=== PATIENT | male | born 1955 | race Caucasian/White ===

== ENCOUNTER 2016-05-04 08:22 | Outpatient (CLI) | payer MEDICAID ==
[~2016-05-04] VITALS: Ht 182.9 cm; Wt 100.0 kg
--- NOTE | ~2016-05-04 | HEMODYNAMI ---
PATIENT:JORGE L PRAJAPATI MEDICAL RECORD: [id number] : 59 LOCATION:D.[facility] ADMISSION DATE: 05/04/16 Generatedon:05/04/201611:34 Patient name: JORGE L PRAJAPATI Patient #: [id number] SSN: DO B: 1955 Date of study: 05/04/2016 Page: Of Hemodynamic Procedure Report Patient Data Patient Demographics Procedure consent was obtained First Name: JORGE L Gender: Male Last Name: VICTORINA : 1955 [facility] Initial: NORMA Age: 60 year(s) Patient #: [id number] Race: Additional ID: [id number] Contact details Address: [address] State: [place] City: [place] Zip code: [address] Past Medical History Allergies Allergen Reaction Date Comments Reported ANIL inhibitors 05/04/2016 Admission Admission Data Admission Date: 05/04/2016 Admission Time: 8:22 Admit Source: Other Lab Results Lab Result Date: 05/04/2016 Lab Result Time: 0:00 Biochemistry Name Units Result Min Max Creatinine mg/dl 1.3 --(---*)-- 0.6 1.3 CBC Name Units Result Min Max Hemoglobin g/dl 14.8 --(-*--)-- 13.5 17.5 Procedure Procedure Types Cath Procedure Diagnostic Procedure PPM/ICD Permanent Pacer Generator Exg. Miscellaneous Procedures Moderate Sedation up to 15 minutes Procedure Description Procedure Date Procedure Date: 05/04/2016 Procedure Start Time: 10:34 Procedure Staff Name Function John Vilchis MD Performing Physician Fede Flores RT Scrub Corby Del Rosario RT Scrub Beverley Bonner RN Nurse Unique Moy RT Monitor Mango Carmona MD Assisting physician Procedure Data Cath Procedure Fluoroscopy Diagnostic fluoroscopy Total fluoroscopy Time: 0 time: 0 min min Diagnostic fluoroscopy Total fluoroscopy dose: 0 dose: 0 mGy mGy Estimated blood loss: 5 ml Procedure Medications Medication Administration Route Dosage Ancef (1Gm/50ml NS) I.V.P.B 1 g Ancef Irrigation added to field 1 g (1gm/500ml NS) Bupivacaine 0.5% added to field 10 ml Lidocaine 1% with added to field 30 ml Epi Versed I.V. 1 mg Fentanyl I.V. 50 mcg Versed I.V. 0.5 mg Fentanyl I.V. 25 mcg Versed I.V. 0.5 mg Fentanyl I.V. 25 mcg Hemodynamics Rest HGB: 14.8 (g/dl) Heart Rate: 61 (bpm) Snapshots Pre Cath Intra NCS Post Cath Vital Signs Time Heart Resp SPO2 NIBP (mmHg) Rhythm Pain Sedation Rate (ipm) (%) Status Level (bpm) 10:53:35 72 16 99 175/98(139) NSR 0 (11) 10(A) , No pain 10:58:03 61 14 100 171/102(142) NSR 0 (11) 10(A) , No pain 11:02:34 68 16 99 172/97(149) NSR 0 (11) 10(A) , No pain 11:06:56 66 15 99 152/93(132) NSR 0 (11) 10(A) , No pain 11:11:20 60 20 99 165/94(125) NSR 0 (11) 10(A) , No pain 11:15:49 78 20 95 158/105(132) NSR 0 (11) 10(A) , No pain 11:20:15 61 19 96 149/87(119) NSR 0 (11) 10(A) , No pain 11:24:35 68 20 97 139/82(113) NSR 0 (11) 10(A) , No pain 11:28:53 70 19 97 143/86(119) NSR 0 (11) 10(A) , No pain 11:33:13 64 18 98 141/91(110) NSR 0 (11) 10(A) , No pain Medications Time Medication Route Dose Verified Delivered Reason Notes Effective ness by by 10:53:34 Ancef I.V.P.B 1 g Mango Lowery Per (1Gm/50ml Mathew Bonner RN physician NS) 10:53:54 Ancef added 1 g Mango Cobian used for Irrigation to Mathew Carmona MD procedure (1gm/500ml field NS) 10:54:17 Bupivacaine added 10 ml Mango Cobian used for 0.5% to Mathew Carmona MD procedure field VICTOR 10:54:30 Lidocaine added 30 ml Mango Cobian used for 1% with Epi to Mathew Carmona MD procedure field VICTOR 11:11:27 Versed I.V. 1 mg Mango Beverley for Mathew Bonner RN sedation 11:11:34 Fentanyl I.V. 50 Mango Beverley for mcg Mathew Bonner RN sedation 11:14:26 Versed I.V. 0.5 Mango Beverley for mg Mathew Bonner RN sedation 11:14:30 Fentanyl I.V. 25 Mango Beverley for mcg Mathew Bonner RN sedation 11:17:00 Versed I.V. 0.5 Mango Beverley for mg Mathew Bonner RN sedation 11:17:09 Fentanyl I.V. 25 Mango Beverley for mcg Mathew Bonner RN sedation Procedure Log Time Note 10:34:17 Admit Source: Other 10:34:52 Corby Del Rosario RT(R) sent for patient. Start room use. 10:34:54 Time tracking: Regular hours 10:34:57 Plan of Care:Hemodynamics will remain stable., Cardiac rhythm will remain stable., Comfort level will be maintained., Respiratory function will remain adequate., Patient/ family verbilizes understanding of procedure., Procedure tolerated without complication., Recovers from procedure without complications.. 10:45:49 Patient received from Pre/Post Procedure Room to [facility] 3 Alert and oriented. Tansferred to table in Supine position. 10:45:50 Warm blankets applied, and odette hugger turned on for patient comfort. 10:45:50 Correct patient and procedure confirmed by team. 10:45:52 Signed procedure consent form obtained from patient. 10:45:52 ECG and BP/O2 sat monitors applied to patient. 10:52:14 Vital chart was started 10:52:20 Rhythm: sinus rhythm 10:52:21 Full Disclosure recording started 10:52:34 H&P Date Dictated: 04/27/2016 Within 30 days and on chart., H&P Addendum completed by physician on day of procedure. (MUST COMPLETE FOR ALL OUTPATIENTS). 10:52:36 Pre-procedure instructions explained to patient. 10:52:36 Pre-op teaching completed and patient verbalized understanding. 10:52:37 Family in waiting room. 10:52:39 Patient NPO since Midnight. 10:52:43 Patient allergic to ANIL inhibitors 10:52:46 Is the patient allergic to Iodine/contrast media? No. 10:52:51 Is patient on blood thinner?Yes 10:52:55 Patient diabetic? No. 10:53:02 Previous problem with sedation/anesthesia? No ? 10:53:03 Snore? Yes 10:53:05 Sleep apnea? No 10:53:07 Deviated septum? No 10:53:13 Opens mouth fully? Yes 10:53:14 Sticks out tongue? Yes 10:53:16 Airway obstruction? No ? 10:53:19 Dentures? No ? 10:53:26 Patient pain scale 0/10 ?. 10:53:32 IV patent on arrival in left hand with 0.9% NaCl at O. 10:53:34 Ancef (1Gm/50ml NS) 1 g I.V.P.B was given by Beverley Bonner RN; Per physician; 10:53:54 Ancef Irrigation (1gm/500ml NS) 1 g added to field was given by Mango Carmona MD; used for procedure; 10:54:03 Lab Result : Creatinine 1.3 mg/dl 10:54:03 Lab Result : Hemoglobin 14.8 g/dl 10:54:07 Lab results completed and on chart. 10:54:12 Left chest area was prepped with chlora-prep and draped in sterile fashion 10:54:14 Alarms reviewed by R. N. 10:54:14 Sharps counted by scrub and verified by R.N. 10:54:17 Bupivacaine 0.5% 10 ml added to field was given by Mango Carmona MD; used for procedure; 10:54:18 Use device set Pacemaker Set 10:54:19 Mepilex Dressing opened to sterile field. 10:54:20 2.0 Ticron Multipack opened to sterile field. 10:54:20 3.0 Vicryl Multipack [id number] opened to sterile field. 10:54:21 5.0 Monocryl PS2 [id number] opened to sterile field. 10:54:30 Lidocaine 1% with Epi 30 ml added to field was given by Mango Carmona MD; used for procedure; 10:55:07 Medtronic Advisa MRI PPM Dual Generator opened to sterile field. 10:58:53 Baseline sample Acquired. 11:05:25 Physician paged 11:10:30 Final Timeout: patient, procedure, and site verified with staff and physician. All members of the team are in agreement. 11:10:35 Left chest site verified by team. 11:11:11 Physical assessment completed. ASA score P 2 - A patient with mild systemic disease as per Mango Carmona MD. 11:11:14 Sedation plan: IV Moderate Sedation Versed, Fentanyl 11:11:27 Versed 1 mg I.V. was given by Beverley Bonner RN; for sedation; 11:11:30 Med[employer] reimbursement representative Michael Pryor present for procedure. 11:11:34 Fentanyl 50 mcg I.V. was given by Beverley Bonner RN; for sedation; 11:11:39 Pre sharps counted by scrub and verified by RN: Sutures: 13 Sponges: 5 Stick needles: 0 Skin needles: 2 Blade: 1 Cautery: 1 11:11:41 Grounding pad site Left thigh. 11:11:42 Grounding pad site free from injury. 11:13:02 Lidocaine 1% w/epi and Bupivacaine 0.5% to left subclavicular area by Mango Carmona MD. 11:13:51 Procedure type changed to Cath procedure, Diagnostic procedure, PPM/ICD, Permanent Pacer Generator Exg., Miscellaneous Procedures, Moderate Sedation up to 15 minutes 11:14:26 Versed 0.5 mg I.V. was given by Beverley Bonner RN; for sedation; 11:14:30 Fentanyl 25 mcg I.V. was given by Beverley Bonner RN; for sedation; 11:14:41 Incision made to left subclavicular area. 11:14:44 Generator pocket made/opened. 11:17:00 Versed 0.5 mg I.V. was given by Beverley Bonner RN; for sedation; 11:17:09 Fentanyl 25 mcg I.V. was given by Beverley Bonner RN; for sedation; 11:17:47 PPM Dual was removed.. 11:17:56 Ventricular lead tested. 11:18:44 Atrial lead tested. 11:19:38 PPM Dual was attached to lead(s) and inserted into pocket. 11:21:06 Generator was sutured in place with 2-0 ticron. 11::52 Subcutaneous closure was completed with 3-0 vicryl. 11:24:21 Parameters-- Generator: Mode: AAIR<=>DDDR. Lower Rate: 60bpm. Upper Rate: 130bpm. 11::52 Parameters--Atrial P/R Wave: 5.9mV. Current: 0.9mA; Threshold: 0.3V; Impedence: 496OHMS. 11:25:08 Parameters--Ventricular P/R Wave: 8.3mV. Current: 1.5mA; Threshold: 0.7V; Impedence: 441OHMS. 11:25:14 Skin closure was completed with 5-0 monocryl. 11:25:22 Lt Chest incision was dressed with Mepilex dressing. 11:27:21 Procedure ended.(Physican Out) 11:27:23 Fluoroscopy time 00.00 minutes. 11:27:25 Flurop Dose total: 0 11:27:25 Fluoroscopy dose: 0 mGy 11:27:26 Sharps counted by scrub and verified by R.N. 11:27:39 Post sharps counted by scrub and verified by RN: Sutures: 14 Sponges: 5 Stick needles: 0 Skin needles: 2 Blade: 1 Cautery: 1 11:27:43 Insertion/operative site no bleeding no hematoma. 11:27:56 Post-procedure physical assessment completed. ASA score P 2 - A patient with mild systemic disease as per Mango Carmona MD. 11:27:58 Post procedure rhythm: unchanged. 11:28:01 Estimated blood loss: 5 ml 11:28:02 Post procedure instruction explained to patient.Patient verbalizes understanding. 11:28:02 Patient needs reinforcement of post procedure teaching. 11:28:07 See physician's report for complete and final results. 11:28:35 Procedure and supply charges have been captured, reviewed, submitted and are correct. 11:34:09 Vital chart was stopped 11:34:11 Report given to Pre/Post Procedure Room. 11:34:20 Patient transfered to Pre/Post Procedure Room with Stretcher. 11:34:24 End room use (Document Last) Device Usage Item Name Manufacture Quantity Catalog Hospital Part Current Minimal Lo t# / Number Charge Number Stock Stock Serial# Code Mepalfredx [place] 1 [id number] 5 Dressing Health 2.0 Ethicon 7 [id number] [id number] [id number] 5 Ticron Multipack 3.0 Ethicon 1 [id number] [id number] 5 Vicryl Multipack [id number] 5.0 Ethicon 1 [id number] 110686 602360 5 Monocryl PS2 Y495G Medtronic Medtronic 1 [id number] 5 Advisa MRI PPM Dual Generator Signature Audit [place] Stage Time Signature Unsigned Intra-Procedure 05/04/2016 Unique 11:34:39 AM Counts RT(R) Signatures Monitor : Unique Signature : Counts RT Date : Time : [address] [address]
[~2016-05-04 08:22] MED LIST: NORVASC5 MG PO; PLAVIX75 MG PO; PRINIVIL20 MG PO
[2016-05-04] MEDS ORDERED: DIOVAN HCT 160/1 TA1 PO (08:44)
[2016-05-04 08:46] VITALS: BP 160/92; Ht 182.9 cm; Wt 100.0 kg
[2016-05-04 09:10] LABS: HEMATOCRIT 43.6 % (42.0-54.0); HEMOGLOBIN 14.8 g/dL (13.5-17.5); MCH 35.4 pg (26.0-34.0); MCHC 33.9 g/dL (31.0-37.0); MCV 104.3 fL (80.0-100.0); RBC 4.18 10x6/uL (4.20-6.10); RDW 13.5 % (11.5-14.5); WBC 3.8 10x3/uL (4.8-10.8)
[2016-05-04 09:16] LABS: ANION GAP 12.8 mmol/L (8-16); CALCIUM 9.1 mg/dL (8.5-10.1); CARBON DIOXIDE 27.1 mmol/L (21.0-32.0); CREATININE - SERUM 1.3 mg/dL (0.6-1.3); POTASSIUM - SERUM 3.9 mmol/L (3.5-5.1)
[2016-05-04 09:58] LABS: INR 1.1 (0.85-1.17); PROTIME 14.1 SECONDS (11.6-15.0)
--- NOTE | 2016-05-04 11:57 | NUR ---
1145 RECEIVED PT TO CATH HOLDING VIA STRETCHER. PT IS ALERT, DENIES ANY C/O. DRESSING TO LEFT UPPER CHEST IS CDI. IV PATENT. FAMILY AT BEDSIDE. CALL LIGHT IN REACH, INSTRUCTED PT TO CALL FOR NEEDS. PO FLUIDS SERVED. PT STATES DOES NOT WANT LUNCH TRAY.
--- NOTE | 2016-05-04 12:34 | NUR ---
VSS WITH CHEST PAIN DENIED PATIENT SITTING WITH HOB UP 30 DEGREES. PIV REMOVED FROM LEFT ARM WITH DRESSING APPLIED. PATIENT UP TO GET DRESSED FOR DISCHARGE
--- NOTE | 2016-05-04 12:49 | NUR ---
VERBAL AND WRITTEN DISCHARGE GONE OVER WITH PATIENT AND BOTH VERBALIZED UNDERSTANDING. CHEST PAIN DENIED WITH DRESSING TO LEFT CHEST WALL CDI NO BLEEDING NO HEMATOMA NOTED LEFT VIA WC TO PARKING FOR TRANSPORT HOME
--- NOTE | 2016-05-05 08:39 | OP ---
PATIENT NAME: JORGE L PRAJAPATI MEDICAL RECORD: [id number] :59 LOCATION:D.CAT ADMISSION DATE: SURGEON: ERNESTO PINA MD DATE OF OPERATION: 05/04/2016 SURGEON: Ernesto Pina MD PREOPERATIVE DIAGNOSIS: Sick sinus syndrome, status post pacemaker. POSTOPERATIVE DIAGNOSIS: Sick sinus syndrome, status post pacemaker. PROCEDURE PERFORMED: Pacemaker generator exchange. ANESTHESIA: Total intravenous anesthesia. COMPLICATIONS: None. SPECIMENS: None. Case was clean. ESTIMATED BLOOD LOSS: Minimal. OPERATIVE COURSE: After consent was obtained, the patient was taken to the cardiac catheterization suite. He was placed in the OR table. A timeout was taken to confirm the correct patient and procedure, total intravenous anesthesia was given. The left chest was prepped and draped in typical sterile fashion. A 20 cc of local anesthetic were injected in the left chest wall. The old incision was opened with a 15-blade scalpel. Dissection continued to the level of the dermis and subcutaneous tissue with electrocautery. The capsule of the pocket was incised with electrocautery. It was then opened with Metzenbaum scissors. This was bluntly dissected. The generator was removed. The leads were removed from the generator battery. They were sent to the Medtronic device to check for placement accuracy. Once complete, the generator wires were placed into the new generator battery. The battery was secured into the capsule with 3-0 Vicryl suture and subcutaneous tissue was closed with 3-0 Vicryl suture. The skin was closed with 5-0 Monocryl. At the end of the case, all needle and instrument counts were correct. No complications occurred. The patient was transferred to the recovery room in satisfactory condition. TRANSINT:[id number] Voice Confirmation ID: [id number] DOCUMENT ID: [id number] ERNESTO PINA MD at 0839 CC: [id number] DICTATION DATE: 05/04/16 1136 INSULATION APPLICATOR: 05/04/16 1451 DEP CLI 05/04/16 [address] [place] [address]
== END 2016-05-04 12:51 | disposition home or self-care (01) ==
LOC: D.CATH 08:22
PROVIDERS: Internal Medicine Interventional Cardiology
DX: Z45.010 Encounter for checking and testing of cardiac pacemaker pulse generator [battery] (principal); I49.5 Sick sinus syndrome

== ENCOUNTER 2017-07-19 15:31 | Observation (INO) | payer BC ==
[~2017-07-19] VITALS: Ht 182.9 cm; Wt 90.9 kg
--- NOTE | ~2017-07-19 | EC ---
PATIENT:JORGE L PRAJAPATI DATE OF SERVICE: 07/19/17 SEX: M MEDICAL RECORD: [id number] DATE OF : 59 LOCATION:D.[facility] AGE OF PATIENT: 61 ADMISSION DATE: 07/19/17 REFERRING PHYSICIAN: INTERPRETING PHYSICIAN: ERNA KIRK MD ECHOCARDIOGRAM REPORT ECHO CHARGES 4 ECHO COMPLETE Date: 07/20 CLINICAL DIAGNOSIS: CVA WITH DYSPNEA HX OF PACER ECHOCARDIOGRAPHIC MEASUREMENTS (adult normal given) AC root (d.<3.7cm) 3.6 cm LV Septum d (<1.2 cm> 1.5 cm Valve Excursion 1.6 cm LV Septum (systole) 1.6 cm Left Atria (s.<4.0cm> 6.4 cm LVPW d(<1.2cm) 1.6 cm RV (d.<2.3cm) 4.3 cm LVPW (sytole) 1.7 cm LV diastole(<5.6CM) 4.8 cm MV E-F(>70mm/sec) cm LV systole 3.1 cm LVOT Diameter 1.9 cm MV exc.(>10mm) 1.9 cm Est.ejection fraction (50-75%) % DOPPLER: LVIT cm/sec A 79.0 cm/sec E 88.0 cm/sec LA cm/sec RVSP 29 mmHg LVOT 89 cm/sec AOP1/2T m/s Asc. Ao 121 cm/sec RVOT 68 cm/sec RA cm/sec PA 103 cm/sec AV Gradient Peak 5.82 mmHg AV Mean 2.825mmHg AV Area 1.9 cm MV Gradient Peak 3.88 mmHg MV Mean 1.40 mmHg MV Area cm COMMENTS: Trim Master Operator: Margot DILLARD Coater Associate: 2 Dr. Richard TAPE# PACS Pericardial Effusion N DATE OF SERVICE: 07/20/2017 FINDINGS: 1. Left ventricular chamber size is within normal limits. Left ventricular systolic function is normal. Overall ejection fraction estimated at 60%. 2. Left atrium, right atrium, and right ventricular chamber sizes are within normal limits. 3. Valvular structures have normal structure and motion. 4. Doppler interrogation reveals trace mitral regurgitation. No other valvular insufficiency or stenosis. Pulmonary systolic pressure is normal estimated at ECHOCARDIOGRAM REPORT [id number] JORGE L PRAJAPATI 29 mmHg. 5. No evidence of pericardial effusion or left ventricular thrombus. TRANSINT:[id number] Voice Confirmation ID: [id number] DOCUMENT ID: [id number] ERNA KIRK MD at 1006 CC: [id number] DICTATION DATE: 07/21/17 0958 SYSTEMS DESIGN ENGINEER: 07/21/17 1242 DIS IN 07/20/17 [id number] [place] [address]
[~2017-07-19 15:31] MED LIST changes: +DIOVAN HCT 160/1 TA1 PO
[2017-07-19 16:26] LABS: BASOPHILS 0.2 % (0-2); EOSINOPHILS 1.1 % (0-7); HEMATOCRIT 43.9 % (42.0-54.0); HEMOGLOBIN 15.2 g/dL (13.5-17.5); LYMPHOCYTES 42.5 % (15-50); MCH 36.6 pg (26.0-34.0); MCHC 34.6 g/dL (31.0-37.0); MCV 105.8 fL (80.0-100.0); MEAN PLATELET VOLUME 9.6 fL (7.4-10.4); MONOCYTES 8.7 % (2-11); NEUTROPHILS 47.5 % (40-80); RBC 4.15 10x6/uL (4.20-6.10); RDW 13.5 % (11.5-14.5); WBC 4.4 10x3/uL (4.8-10.8)
[2017-07-19 16:31] LABS: PROTIME 12.8 SECONDS (11.6-15.0)
[2017-07-19 16:32] LABS: APTT 26.9 SECONDS (22.8-39.4)
[2017-07-19 16:33] LABS: PLATELET COUNT 220 10x3/uL (130-400)
[2017-07-19 16:37] LABS: ALBUMIN 3.8 g/dL (3.4-5.0); ANION GAP 11.6 mmol/L (8-16); BILIRUBIN - TOTAL 0.5 mg/dL (0.2-1.3); CALCIUM 9.6 mg/dL (8.5-10.1); CARBON DIOXIDE 30.8 mmol/L (21.0-32.0); CREATININE - SERUM 1.2 mg/dL (0.6-1.3); POTASSIUM - SERUM 3.4 mmol/L (3.5-5.1); PROTEIN - SERUM 8.2 g/dL (6.4-8.2)
[2017-07-19 18:01] LABS: CHOL - HDL RATIO 6.5 ratio (2.3-4.9); LDL-HDL RATIO 3.7 ratio (1.5-3.5)
[2017-07-19 23:40] VITALS: BP 142/79; Ht 182.9 cm; Wt 90.9 kg
[2017-07-20 04:14] VITALS: BP 128/701
[2017-07-20 06:04] LABS: BASOPHILS 0.6 % (0-2); EOSINOPHILS 2.5 % (0-7); HEMATOCRIT 40.3 % (42.0-54.0); HEMOGLOBIN 13.7 g/dL (13.5-17.5); LYMPHOCYTES 47.5 % (15-50); MCV 105.8 fL (80.0-100.0); MEAN PLATELET VOLUME 9.7 fL (7.4-10.4); MONOCYTES 8.3 % (2-11); NEUTROPHILS 41.1 % (40-80); PLATELET COUNT 194 10x3/uL (130-400); RBC 3.81 10x6/uL (4.20-6.10); RDW 13.4 % (11.5-14.5); WBC 3.6 10x3/uL (4.8-10.8)
[2017-07-20 06:39] LABS: ALBUMIN 3.1 g/dL (3.4-5.0); BILIRUBIN - TOTAL 0.31 mg/dL (0.2-1.3); CREATININE - SERUM 1.1 mg/dL (0.6-1.3)
[2017-07-20 06:49] LABS: THYROID STIMULATING HORMONE 3.43 uIU/mL (0.36-3.74)
[2017-07-20 08:32] VITALS: BP 134/88
[2017-07-20] MEDS ORDERED: PRAVACHOL20 MG PO (10:08)
[2017-07-20] MEDS ORDERED: ASPIRIN EC81 M1 PO (10:08)
[2017-07-20 10:11] LABS: PHOSPHOROUS 4.7 mg/dL (2.5-4.9)
[2017-07-20 11:44] VITALS: BP 149/79
[2017-07-21 13:17] LABS: ANA REFLEX - ANTICHROMATIN ABS <0.2 AI (0.0-0.9); ANA REFLEX - DBL STRANDED DNA <1 IU/mL (0-9); ANA REFLEX - DIRECT Negative (Negative); ANA REFLEX - RNP ANTIBODIES 0.6 AI (0.0-0.9); ANA REFLEX - SJOGRENS AB SSA 0.4 AI (0.0-0.9); ANA REFLEX - SJOGRENS AB SSB <0.2 AI (0.0-0.9); ANA REFLEX - SMITH AB <0.2 AI (0.0-0.9)
== END 2017-07-20 15:46 | disposition home or self-care (01) ==
LOC: D.ER 15:31 → D.MS 18:13 → D.EDHOLD 18:13 → OBSVTIME 18:14 → D.MS 19:19
PROVIDERS: Family Medicine
DX: I63.9 Cerebral infarction, unspecified (principal); R47.81 Slurred speech; R29.810 Facial weakness; F17.213 Nicotine dependence, cigarettes, with withdrawal; I10 Essential (primary) hypertension; Z95.0 Presence of cardiac pacemaker

== ENCOUNTER → 2019-07-20 08:24 | Outpatient (CLI) | payer MEDICAID ==
[2017-07-19 23:40] VITALS: BMI 27.2
[~2019-07-20 08:24] MED LIST changes: +ASPIRIN EC81 M1 PO; +PRAVACHOL20 MG PO
== END | disposition home or self-care (01) ==
LOC: D.HCCARDIO 08:24 → D.HCCECHO 09:00
PROVIDERS: ATTEND Internal Medicine Cardiovascular Disease
DX: R06.09 Other forms of dyspnea (principal); Z03.89 Encounter for observation for other suspected diseases and conditions ruled out

== ENCOUNTER 2019-08-03 12:16 | Outpatient (CLI) | payer MEDICAID ==
[~2019-08-03] VITALS: Ht 182.9 cm; Wt 86.4 kg
--- NOTE | ~2019-08-03 | HEMODYNAMI ---
PATIENT:JORGE L PRAJAPATI MEDICAL RECORD: [id number] : 59 LOCATION:D.[facility]AN[facility] ADMISSION DATE: 08/03/19 Generatedon:08/03/201914:48 Patient name: JORGE L PRAJAPATI Patient #: [id number] SSN: [id number] : 1955 Date of study: 08/03/2019 Page: Of Hemodynamic Procedure Report Patient Data Patient Demographics Procedure consent was obtained First Name: JORGE L Gender: Male Last Name: VICTORINA : 1955 [facility] Initial: NORMA Age: 63 year(s) Patient #: [id number] Race: SSN: [id number] Additional ID: [id number] Contact details Address: [address] State: [place] City: [place] Zip code: [address] Past Medical History Performed procedures and imaging results Date Procedure Procedure Results Comments 07/20/2019 Stress testing Positive->Intermediate with SPECT MPI risk Allergies Allergen Reaction Date Comments Reported ANIL inhibitors 05/04/2016 Other allergy 08/03/2019 anil inhibitors Admission Admission Data Admission Date: 08/03/2019 Admission Time: 12:16 Arrival Date: 08/03/2019 Arrival Time: 0:58 Admit Source: Other Insurance Payor: Medicare [facility] #: [id number] Height (in.): 72 BSA: 2.09 (m2) Height (cm.): 182.88 BMI: 25.82 (kg/m2) Weight (lbs.): 190.39 Weight (kg.): 86.36 Lab Results Lab Result Date: 08/03/2019 Lab Result Time: 0:00 Biochemistry Name Units Result Min Max BUN mg/dl 14 --(--*-)-- 7 18 Creatinine mg/dl 1.1 --(--*-)-- 0.6 1.3 eGFR ml/min 72 *-(----)-- 90 120 NONAFRICAN CBC Name Units Result Min Max Hematocrit % 41.2 -*(----)-- 42 54 Hemoglobin g/dl 13.9 --(*---)-- 13.5 17.5 Procedure Procedure Types Cath Procedure Diagnostic Procedure [facility] w/Coronaries Procedure Description Procedure Date Procedure Date: 08/03/2019 Procedure Start Time: 14:34 Procedure End Time: 14:45 Procedure Staff Name Function Eamon Heard MD Performing Physician Alyx Treviño RN Nurse Jordana Tilley RT Scrub Blessing Moses RT Monitor Procedure Data Cath Procedure Fluoroscopy Diagnostic fluoroscopy Total fluoroscopy Time: 1.3 time: 1.3 min min Diagnostic fluoroscopy Total fluoroscopy dose: 390 dose: 390 mGy mGy Contrast Material Contrast Material Type Amount (ml) Isovue 370 57 Entry Location Entry Primary Successful Side Size Upsize Upsize Entry Closure Vásquez ccessful Closure Location (Fr) 1 (Fr) 2 (Fr) Remarks Device Remarks Radial Right 6 Fr Mechanical artery Short Compression Estimated blood loss: 5 ml Diagnostic catheters Device Type Used For End Catheter Placement DIAGNOSTIC Coventry 110cm 5 Multi-vessel Fr catheter ([id number]) Angiography Procedure Complications No complications Procedure Medications Medication Administration Route Dosage Lidocaine 2% added to field 20 Heparin Flush Bag added to field 2 bags (1000units/500ml NS) 0.9% NaCl I.V. 100 ml/hr Radial Cocktail I.A. 1 syringe (Verapamil 2mg/Nitro 400mcg/Heparin 1500units) Hemodynamics Rest BSA: 2.09 (m2) HGB: 13.9 (g/dl) O2 Consumption: Estimated: 237.22 (ml/min) O2 Co nsumption indexed: Estimated:113.5 (ml/min/m) Heart Rate: 60 (bpm) Pressure Samples Time Site Value (mmHg) Purpose Heart Use Rate(bpm) 14:38 LV 135/14,19 Snapshot 66 14:38 AO 114/34(84) Pullback 94 Gradients Valve Time Site Site 2 Mean SEP/DFP Peak To Heart Use 1 (mmHg) (sec/min) Peak Rate (mmHg) (bpm) Aortic 14:38 LV AO 25 16 94 114/34(84) Calculations Valve P-P Mean Valve Index Valve Source Name Gradient Area Flow (cm2) Aortic 25 25 Snapshots Pre Cath Intra NCS Post Cath Vital Signs Time Heart Resp SPO2 etCO2 NIBP (mmHg) Rhythm Pain Sedation Rate (ipm) (%) (mmHg) Status Level (bpm) 14:24:06 60 16 97 35.1 148/84(126) NSR 0 (11) 10(A) , No pain 14:28:26 60 15 98 33.6 139/83(118) NSR 0 (11) 10(A) , No pain 14:32:48 62 19 98 38.1 142/78(120) NSR 0 (11) 10(A) , No pain 14:37:06 59 13 97 29.9 142/86(123) NSR 0 (11) 10(A) , No pain 14:41:26 74 15 94 32.1 135/79(116) NSR 0 (11) 10(A) , No pain Medications Time Medication Route Dose Verified Delivered Reason Notes Effectiveness by by 14:29:21 Lidocaine 2% added 20ml Eamon Knutson for local to vial [facility] anesthetic field MD VICTOR 14:29:30 Heparin Flush added 2 bags Eamon Knutson used for Bag to [facility] procedure (1000units/500ml field MD VICTOR NS) 14:29:40 0.9% NaCl I.V. 100 Eamon Wisdom Per ml/hr [facility] Treviño RN physician 14:35:05 Radial Cocktail I.A. 1 Eamon Knutson for (Verapamil syringe [facility] vasodilation 2mg/Nitro MD VICTOR 400mcg/Heparin 1500units) Procedure Log Time Note 13:56:26 Informed consent obtained and on chart 13:56:31 Diagnostic Cath Status : Elective 13:56:51 Admit Source: Other 13:56:53 Patient Height : 72 inches 13:56:55 ACC Patient presents with Stable Angina CCS Anginal Class 2--Slight limitation of ordinary activity. 13:56:58 Procedure Status Elective Heart Cath (OP). 13:57:01 Alyx Treviño RN sent for patient. Start room use. 13:57:06 Time tracking: Regular hours (M-F 7:00 - 5:00) 13:57:11 Plan of Care:Hemodynamics will remain stable., Cardiac rhythm will remain stable., Comfort level will be maintained., Respiratory function will remain adequate., Patient/ family verbilizes understanding of procedure., Procedure tolerated without complication., Recovers from procedure without complications.. 13:57:23 H&P Date Dictated: 07/10/2019 Within 30 days and on chart.. 13:57:24 Pre-procedure instructions explained to patient. 13:57:25 Pre-op teaching completed and patient verbalized understanding. 13:57:26 Family unavailable. 13:57:28 Patient NPO since Midnight. 13:57:49 Patient allergic to Other allergyace inhibitors 14:00:07 Lab Result : BUN 14 mg/dl 14:00:07 Lab Result : Creatinine 1.1 mg/dl 14:00:07 Lab Result : eGFR NONAFRICAN 72 ml/min 14:00:07 Lab Result : Hemoglobin 13.9 g/dl 14:00:07 Lab Result : Hematocrit 41.2 % 14:00:11 Lab results completed and on chart. 14:00:30 Stress Test: yes; abnormal inferior lateral 14:00:32 Alarms reviewed by R. N. 14:00:32 Sharps counted by scrub and verified by R.N. 14:01:19 Patient Weight : 190.39 lbs 14:07:38 Risk of Mortality: 0.1 14:07:40 Risk of blood transfusion: 0.1 14:07:44 Risk of KRISHNA: 0.3 14:22:58 Vital chart was started 14:25:27 Patient received from Pre/Post Procedure Room to CCL 1 Alert and oriented. Tansferred to table in Supine position. 14:25:29 Warm blankets applied, and odette hugger turned on for patient comfort. 14:25:29 Correct patient and procedure confirmed by team. 14:25:30 Baseline sample Acquired. 14:25:30 ECG and BP/O2 sat monitors applied to patient. 14:25:34 Rhythm: sinus rhythm 14:25:36 Full Disclosure recording started 14:25:39 Is the patient allergic to Iodine/contrast media? No. 14:25:41 Was the patient premedicated? Yes 14:25:42 Is patient on blood thinner?No 14:25:44 Patient diabetic? No. 14:25:48 Previous problem with sedation/anesthesia? No ? 14:25:51 Snore? No 14:25:52 Sleep apnea? No 14:25:54 Deviated septum? No 14:25:56 Opens mouth fully? Yes 14:25:57 Sticks out tongue? Yes 14:25:59 Airway obstruction? No ? 14:26:05 Dentures? No ? 14:26:09 Pre procedure: right dorsailis pedis pulse 2+ Normal; easily identifiable; not easily obliterated 14:26:12 Pre procedure: left dorsailis pedis pulse 2+ Normal; easily identifiable; not easily obliterated 14:26:16 Patient pain scale 0/10 ?. 14:26:24 IV patent on arrival in left forearm with 0.9% NaCl at [facility]. 14::07 Physician arrived 14:: --------ALL STOP TIME OUT------ 14::08 Final Timeout: patient, procedure, and site verified with staff and physician. All members of the team are in agreement. 14:27:14 Right Radial & Right Groin site verified by team. 14:27:18 Fire Safety Assessment: A--An alcohol-based skin anteseptic being used preoperatively., C--Open oxygen or nitrous oxide is being used., D--An ESU, laser, or fiber-optic light is being used. 14:27:33 Physical assessment completed. ASA score P 2 - A patient with mild systemic disease as per Eamon Heard MD. 14:28:12 2) 60-89 Mildly reduced kidney function, and other findings (as for stage 1) point to kidney disease. 14:28:15 Maximum allowable contrast dose (3.7 X eGFR X 0.75)200 ml. 14:28:21 Sedation plan: IV Moderate Sedation Medication:Versed, Fentanyl 14:29:21 Lidocaine 2% 20ml vial added to field was administered by Eamon Heard MD; for local anesthetic; Verbal order read back and verified. 14:29:30 Heparin Flush Bag (1000units/500ml NS) 2 bags added to field was administered by Eamon Heard MD; used for procedure; Verbal order read back and verified. 14:29:40 0.9% NaCl 100 ml/hr I.V. was administered by Alyx Treviño RN; Per physician; Verbal order read back and verified. 14:31:01 Use device set Radial Dx or PCI 14:31:02 ACIST Syringe (37878) opened to sterile field. 14:31:02 Medline Cath Pack ([id number]) opened to sterile field. 14:31:03 Bag Decanter (2002S) opened to sterile field. 14:31:03 ACIST Hand Control (39912) opened to sterile field. 14:31:04 ACIST Manifold (20452) opened to sterile field. 14:31:05 Tegaderm 4 x 4 (1626W) opened to sterile field. 14:31:09 EMERALD Guide Wire (558-499) opened to sterile field. 14:31:10 SHEATH 6FR RAIN ([id number]) opened to sterile field. 14:34:19 Zero performed for pressure channel P1 14:34:26 Procedure started. 14:34:31 Local anesthetic to right radial artery with Lidocaine 2% by Eamon Heard MD.INITIAL ACCESS ONLY 14:34:39 A 6 Fr Short sheath was inserted into the Right Radial artery 14:35:05 Radial Cocktail (Verapamil 2mg/Nitro 400mcg/Heparin 1500units) 1 syringe I.A. was administered by Eamon Heard MD; for vasodilation; Verbal order read back and verified. 14:36:19 A DIAGNOSTIC Coventry 110cm 5 Fr catheter (002048) was advanced over the wire and used for Multi-vessel Angiography. 14:38:05 LV hemodynamics recorded. 14:38:06 LV gram done using SALMERON 14:38:08 Injector settings: Ml/sec: 5, Volume: 15, 14:38:42 EF : 55 % 14:39:21 LCA angiography performed. 14:39:24 Injector settings: Ml/sec: 3, Volume: 6, 14:39:57 RCA angiography performed. 14:40:00 Injector settings: Ml/sec: 3, Volume: 6, 14:40:51 Catheter removed. 14:40:54 ZEPHYR REGULAR TR BAND ([id number]) opened to sterile field. 14:41:03 Sheath removed intact; hemostasis achieved with Mechanical Compression to the Right Radial artery. 14:41:04 Procedure ended.(Physican Out) 14:41:26 Fluoroscopy time 01.30 minutes. 14:41:30 Fluoroscopy dose: 390 mGy 14:41:30 Flurop Dose total: 390 14:41:36 Dose Area Product 73203 mGy/cm. 14:42:16 Contrast amount:Isovue 370 57ml. 14:42:18 Maximum allowable dose exceeded? No. 14:42:19 Sharps counted by scrub and verified by R.N. 14:42:55 Iola band inflated with 10cc of air. 14:42:59 Insertion/operative site no bleeding no hematoma. 14:43:04 Post right radial artery:stable 14:43:05 Post Procedure Pulses reassessed and unchanged 14:43:08 Post procedure rhythm: unchanged. 14:43:11 Estimated blood loss: 5 ml 14:43:14 Post procedure instruction explained to patient.Patient verbalizes understanding. 14:43:15 Patient needs reinforcement of post procedure teaching. 14:44:11 Procedure type changed to Cath procedure, Diagnostic procedure, LHC, C w/Coronaries 14:44:12 Procedure and supply charges have been captured, reviewed, submitted and are correct. 14:44:24 Procedure Complication : No complications 14:44:41 Vital chart was stopped 14:44:59 [facility] Findings: mild to moderate CAD (<70%) 14:45:03 Operative report dictated upon procedure completion. 14:45:05 See physician's report for complete and final results. 14:45:16 Report given to Pre/Post Procedure Room. 14:45:18 Patient transfered to Pre/Post Procedure Room with Stretcher. 14:45:20 Procedure ended. 14:45:20 Full Disclosure recording stopped 14:45:37 End room use (Document Last) Device Usage Item Name Manufacture Quantity Catalog Hospital Part Current Minimal Lot# / Number Charge Number Stock Stock Serial# Code ACIST Acist 1 77328 320597 093640 [id number] 20 Syringe Medical (38615) Systems Inc Medline Medline 1 [id number] 055303 66001 158185 5 Cath Pack ([id number]) Bag Microtek 1 929605 62885 282756 5 Decanter Medical Inc. () ACIST Hand Acist 1 36643 836210 344775 239350 5 Control Medical (62306) Systems Inc ACIST Acist 1 50845 896275 320720 173137 5 Manifold Medical (45009) Systems Inc Tegaderm 4 3M 1 1626W 500580 975352 612681 5 x 4 (1626W) EMERALD Cardinal 1 502-455 150025 958594 277549 5 Guide Wire [facility] (135-439) SHEATH 6FR Cardinal 1 [id number] 623396 5214424 366430 5 RAIN [facility] ([id number]) DIAGNOSTIC Terumo 1 40-5013 118767 270007 078709 5 Coventry 110cm 5 Fr catheter (547406) ZEPHYR Cardinal 1 778945 887352 8518121 629118 5 REGULAR TR Health BAND (771898) Signature Audit [place] Stage Time Signature Unsigned Intra-Procedure 08/03/2019 Blessing Moses 2:47:57 PM RT(R) Intra-Procedure 08/03/2019 Alyx Treviño RN 2:48:17 PM Intra-Procedure 08/03/[address] 2:48:39 PM [facility] [place] [address] [place] [address]
[2019-08-03] MEDS ORDERED: NORVASC5 MG PO (12:37)
[2019-08-03] MEDS ORDERED: MOBIC7.5 MG PO (12:37)
[2019-08-03] MEDS ORDERED: HYDROCHLOROTH12.5 M1 PO (12:39)
[2019-08-03] MEDS ORDERED: COZAAR50 MG PO (12:39)
[2019-08-03 12:56] VITALS: BP 130/82; Ht 182.9 cm; Wt 86.4 kg
[2019-08-03 12:56] LABS: BASOPHILS 0.5 % (0-2); EOSINOPHILS 2.3 % (0-7); HEMATOCRIT 41.2 % (42.0-54.0); HEMOGLOBIN 13.9 g/dL (13.5-17.5); IMMATURE GRANULOCYTES 0.2 % (0-5); MCH 35.1 pg (26.0-34.0); MCHC 33.7 g/dL (31.0-37.0); MEAN PLATELET VOLUME 9.4 fL (7.4-10.4); MONOCYTES 7.1 % (2-11); NEUTROPHILS 53.9 % (40-80); PLATELET COUNT 218 10x3/uL (130-400); RBC 3.96 10x6/uL (4.20-6.10); RDW 13.4 % (11.5-14.5); WBC 4.4 10x3/uL (4.8-10.8)
[2019-08-03 13:11] LABS: ANION GAP 14.3 mmol/L (8-16); CARBON DIOXIDE 28.4 mmol/L (21.0-32.0); CHOL - HDL RATIO 4.1 ratio (2.3-4.9); CREATININE - SERUM 1.1 mg/dL (0.6-1.3); LDL-HDL RATIO 2.6 ratio (1.5-3.5)
[2019-08-03 13:12] LABS: POTASSIUM - SERUM 2.7 mmol/L (3.5-5.1)
--- NOTE | 2019-08-03 14:48 | NUR ---
PT ARRIVED BY STRETCHER. PLACED ON MONITORS. ASSESSMENT COMPLETED. VSS AT THIS TIME. CALL LIGHT WITHIN REACH.
--- NOTE | 2019-08-03 14:58 | NUR ---
PT ARRIVED BY STRETCHER. PLACED ON MONITORS. ASSESSMENT COMPLETED. VSS AT THIS TIME. CALL LIGHT WITHIN REACH.
--- NOTE | 2019-08-03 15:15 | NUR ---
PT RESTING COMFORTABLY. RIGHT WRIST Z BAND IN PLACE. NO BLEEDING/HEMATOMA NOTED. VSS AT THIS TIME. CALL LIGHT WITHIN REACH.
--- NOTE | 2019-08-03 15:45 | NUR ---
PT SITTING UP AND EATING. DENIES NAUSEA/PAIN AT THIS TIME. RIGHT WRIST Z BAND IN PLACE. NO BLEEDING/HEMATOMA NOTED. CALL LIGHT WITHIN REACH. CAP REFILL < 3 SECS X 4 EXT. PPP X 4.
--- NOTE | 2019-08-03 16:00 | NUR ---
2cc OF AIR REMOVED FORM Z BAND. NO BLEEDING/HEMATOMA NOTED. CALL LIGHT WITHIN REACH. VSS AT THIS TIME. PT WATCHING TELEVISION AT THIS TIME.
--- NOTE | 2019-08-03 16:15 | NUR ---
3cc OF AIR REMOVED FROM Z BAND. NO BLEEDING/HEMATOMA NOTED. CALL LIGHT WITHIN REACH. VSS AT THIS TIME.
--- NOTE | 2019-08-03 16:30 | NUR ---
5cc OF AIR REMOVED FROM Z BAND. NO BLEEDING/HEMATOMA NOTED. CALL LIGHT WITHIN REACH. VSS AT THIS TIME.
--- NOTE | 2019-08-03 16:45 | NUR ---
Z BAND REMOVED AND DRESSING APPLIED. NO BLEEDING/HEMATOMA NOTED. RIGHT WRIST BRACE IN PLACE. DISCUSSED DISCHARGE INSTRUCTIONS WITH PT. HE VOICED UNDERSTANDING. PIV D/C'D WITH CATH TIP INTACT. TOLERATED WELL. PT INSTRUCTED TO GET UP AND DRESSED AT THIS TIME. NO ASSISTANCE NEEDED. CALL LIGHT WITHIN REACH.
--- NOTE | 2019-08-03 16:54 | NUR ---
PT AMBULATED TO RESTROOM. VOIDED WITHOUT DIFFICULTY. STEADY GAIT NOTED.
--- NOTE | 2019-08-03 17:00 | NUR ---
RIGHT WRIST DRESSING C/D/I. NO S/S OF HEMATOMA NOTED. PT TAKEN DOWN TO VEHICLE BY WHEELCHAIR. NO S/S OF DISTRESS NOTED. ALL BELONGINGS AND PAPERWORK IN HAND.
--- NOTE | 2019-08-06 08:56 | OP ---
PATIENT NAME: JORGE L PRAJAPATI MEDICAL RECORD: [id number] :59 LOCATION:D.CAT ADMISSION DATE: SURGEON: COSME TITUS MD DATE OF OPERATION: 08/03/2019 PROCEDURE: Left heart catheterization, selective coronary angiography, right femoral artery approach. CATHETERS: A 5-Bhutanese sheath, 5/4 left and right Ann Marie, 5/4 pig. The procedure was well tolerated. The patient returned to the martins. Sheath removed. TR band was placed. FINDINGS: Left ventriculography in 30-degree SALMERON view; normal wall motion. Normal systolic function. CORONARY ANATOMY: LEFT MAIN: Left main is free of disease. LAD: Free of disease in the diagonal system. CIRCUMFLEX: Free of disease in the marginal system. RIGHT CORONARY ARTERY: Dominant artery, gives PDA, free of disease. IMPRESSION: Normal LV systolic function, normal coronary anatomy. TRANSINT:[id number] Voice Confirmation ID: [id number] DOCUMENT ID: [id number] COSME TITUS MD at 0856 CC: [id number] DICTATION DATE: 08/03/19 1457 HOG MAN: 08/03/192110 DEP CLI 08/03/19 [facility] [address] [place] [address]
== END 2019-08-03 17:00 | disposition home or self-care (01) ==
LOC: D.CATH 12:16
PROVIDERS: ATTEND Internal Medicine Interventional Cardiology
DX: I10 Essential (primary) hypertension (principal); Z95.0 Presence of cardiac pacemaker; R06.09 Other forms of dyspnea; Z72.0 Tobacco use; K21.9 Gastro-esophageal reflux disease without esophagitis